=== PATIENT | female | born 1950 | race Caucasian/White ===

== ENCOUNTER 2022-07-03 19:58 | Inpatient (IN) | payer OTHER ==
[~2022-07-03] VITALS: Ht 157.5 cm; Wt 89.8 kg
[2022-07-03 20:42] VITALS: BP 129/45
[2022-07-03] MEDS ORDERED: MORPHINE SULFATE 4 MG/ML SYR IVP ONE (20:45)
[2022-07-03] MEDS ORDERED: ONDANSETRON 4 MG/2 ML VIAL IVP ONE (20:45)
[2022-07-03 21:34] LABS: BASOPHILS # (AUTO) 0.1 K/uL (0.00-0.22); BASOPHILS % (AUTO) 0.9 % (0.0-2.0); EOSINOPHILS # (AUTO) 0.1 K/uL (0-0.4); EOSINOPHILS % (AUTO) 0.7 % (0.0-4.0); HEMOGLOBIN 12.7 g/dL (12.0-16.0); LYMPHOCYTES # (AUTO) 2.5 K/uL (2.5-16.5); LYMPHOCYTES % (AUTO) 20.5 % (20.5-51.1); MEAN CORPUSCULAR HEMOGLOBIN 32 pg (27-31); MEAN CORPUSCULAR HGB CONC 34 g/dL (33-37); MEAN CORPUSCULAR VOLUME 96.4 fL (80-94); MONOCYTES # (AUTO) 0.8 K/uL (0.8-1.0); MONOCYTES % (AUTO) 6.4 % (1.7-9.3); NEUTROPHILS # (AUTO) 8.8 K/uL (1.8-7.7); NEUTROPHILS % (AUTO) 71.5 % (42.2-75.2); PLATELET COUNT (AUTO) 298 K/uL (140-450); RED BLOOD CELL COUNT(AUTO) 3.95 MIL/uL (4.20-5.40); WHITE BLOOD COUNT (AUTO) 12.4 K/uL (4.8-10.8)
[2022-07-03 21:57] LABS: PROTHROMBIN TIME 10.3 secs (10.8-13.4)
[2022-07-03 22:13] LABS: ANION GAP 14.6 (8-16); CARBON DIOXIDE 27.9 mmol/L (21-32); CREATININE 1.1 mg/dL (0.6-1.3); POTASSIUM 4.5 mmol/L (3.5-5.1); TOTAL BILIRUBIN 0.5 mg/dL (0.0-1.0)
[2022-07-03] MEDS ORDERED: INSULIN LISPRO SLIDING SCALE 100 UNITS/ML VIAL SUBQ PRN ×3 (23:10→23:40)
[2022-07-03] MEDS ORDERED: MORPHINE SULFATE 2 MG/ML SYR IVP PRN ×2 (23:10→23:40)
[2022-07-03] MEDS ORDERED: MORPHINE SULFATE 2 MG/ML SYR ONE (23:40)
[2022-07-04] MEDS ORDERED: MORPHINE SULFATE 4 MG/ML SYR IVP ONE (01:30)
[2022-07-04] MEDS ORDERED: HYDROcodone/APAP 10/325 MG 1 TAB TAB PO PRN (03:20)
[2022-07-04] MEDS ORDERED: METF-346 PO (04:39)
[2022-07-04] MEDS ORDERED: BUPR-160 PO (04:39)
[2022-07-04] MEDS ORDERED: LEUC10TA PO (04:39)
[2022-07-04] MEDS ORDERED: WELC PO (04:39)
[2022-07-04] MEDS ORDERED: [UNRECOGNIZED DRUG - CODE] IJ (04:39)
[2022-07-04] MEDS ORDERED: DULO60EC1 PO (04:43)
[2022-07-04] MEDS ORDERED: MELO-176 PO (04:43)
[2022-07-04] MEDS ORDERED: VIT1CAPS17 PO (04:56)
[2022-07-04] MEDS ORDERED: CALC625T27 PO (04:56)
[2022-07-04] MEDS ORDERED: GLUC1CAP66 PO (04:56)
[2022-07-04] MEDS ORDERED: MAGN100T13 PO (04:56)
[2022-07-04] MEDS ORDERED: [UNRECOGNIZED DRUG - CODE] PO (04:56)
[2022-07-04] MEDS ORDERED: FLOR250 PO (04:56)
[2022-07-04] MEDS ORDERED: CHOL1TAB11 PO (04:56)
[2022-07-04] MEDS ORDERED: [UNRECOGNIZED DRUG - CODE] (04:56)
[2022-07-04] MEDS ORDERED: ASCO500C20 PO (04:56)
[2022-07-04] MEDS ORDERED: ACETAMINOPHEN 325 MG TAB PO PRN (07:10)
[2022-07-04] MEDS ORDERED: ZOLPIDEM 10 MG TAB PO PRN (07:10)
[2022-07-04] MEDS: HYDROcodone/APAP 10/325 MG 1 TAB TAB PO SCH ×3 (07:10→20:21)
[2022-07-04] MEDS ORDERED: ONDANSETRON 4 MG/2 ML VIAL IVP PRN (07:10)
[2022-07-04] MEDS ORDERED: POTASSIUM CHLORIDE 10 MEQ TABER PO PRN (07:10)
[2022-07-04] MEDS ORDERED: LORazepam 2 MG/ML VIAL IVP PRN (07:10)
[2022-07-04] MEDS ORDERED: DOCUSATE SODIUM 100 MG GELCAP PO PRN (07:10)
[2022-07-04] MEDS: MORPHINE SULFATE 2 MG/ML SYR IVP PRN ×4 (07:28→23:30)
[2022-07-04] MEDS ORDERED: BLOOD GLUCOSE MONITORING 1 DEV DEV FS SCH ×2 (07:30)
[2022-07-04] MEDS: NACL 0.9% 1,000 ML IV SCH ×2 (07:41→21:28)
[2022-07-04] MEDS: BLOOD GLUCOSE MONITORING 1 DEV DEV FS SCH ×4 (07:41→20:05)
[2022-07-04] MEDS ORDERED: NON-FORMULARY ITEM (Bupropion HCl* (Wellbutrin Xl*) 1 TAB) PO SCH (09:00)
[2022-07-04] MEDS ORDERED: DULoxetine 30 MG CAPDR PO SCH (09:00)
[2022-07-04] MEDS ORDERED: HYDROcodone/APAP 10/325 MG 1 TAB TAB PO SCH (09:27)
[2022-07-04] MEDS: metFORMIN 500 MG TAB PO SCH ×2 (09:46→20:20)
[2022-07-04] MEDS: ENOXAPARIN 40 MG/0.4 ML SYR SUBQ SCH (09:55)
[2022-07-04] MEDS: buPROPion 150 MG TABER PO SCH (09:55)
[2022-07-04 16:00] VITALS: BP 153/97
[2022-07-04 20:00] VITALS: BP 143/61
[2022-07-04] MEDS: DULoxetine 30 MG CAPDR PO SCH (20:20)
[2022-07-04 21:28] LABS: APPEARANCE,URINE CLEAR (CLEAR); BILIRUBIN,URINE NEGATIVE (NEGATIVE); BLOOD, URINE NEGATIVE (NEGATIVE); COLOR,URINE YELLOW (YELLOW); LEUKOCYTE ESTERASE ,URINE TRACE (NEGATIVE); NITRITE, URINE POSITIVE (NEGATIVE); PH,URINE 5.5 (5.0-9.0); UGLUCOSE NEGATIVE (NEGATIVE)
[2022-07-04 22:16] LABS: RBC,URINE NONE SEEN /HPF (0-5); TRICHOMONAS,URINE None Seen /HPF (None Seen); WBC,URINE 0-5 /HPF (0-5); YEAST,URINE None Seen /HPF (None Seen)
[2022-07-04 22:17] LABS: CALCIUM OXALATE CRYSTALS,UR 0-10 /HPF (None Seen)
[2022-07-05] VITALS: BP 144/67
[2022-07-05 04:00] VITALS: BP 136/65
[2022-07-05] MEDS: HYDROcodone/APAP 10/325 MG 1 TAB TAB PO SCH ×3 (05:01→21:11)
[2022-07-05] MEDS: BLOOD GLUCOSE MONITORING 1 DEV DEV FS SCH ×4 (06:44→21:07)
[2022-07-05 07:28] LABS: BASOPHILS % (AUTO) 0.3 % (0.0-2.0); EOSINOPHILS % (AUTO) 0.4 % (0.0-4.0); HEMATOCRIT 33.7 % (36-48); HEMOGLOBIN 11.4 g/dL (12.0-16.0); LYMPHOCYTES # (AUTO) 1.7 K/uL (2.5-16.5); LYMPHOCYTES % (AUTO) 16.1 % (20.5-51.1); MEAN CORPUSCULAR HEMOGLOBIN 33 pg (27-31); MEAN CORPUSCULAR HGB CONC 34 g/dL (33-37); MEAN CORPUSCULAR VOLUME 98.1 fL (80-94); MONOCYTES # (AUTO) 0.8 K/uL (0.8-1.0); MONOCYTES % (AUTO) 7.1 % (1.7-9.3); NEUTROPHILS # (AUTO) 8.2 K/uL (1.8-7.7); NEUTROPHILS % (AUTO) 76.1 % (42.2-75.2); PLATELET COUNT (AUTO) 224 K/uL (140-450); RED BLOOD CELL COUNT(AUTO) 3.44 MIL/uL (4.20-5.40); RED CELL DISTRIBUTION WIDTH 13.2 % (11.6-13.7); WHITE BLOOD COUNT (AUTO) 10.7 K/uL (4.8-10.8)
[2022-07-05 07:38] LABS: ANION GAP 10.9 (8-16); CARBON DIOXIDE 30.3 mmol/L (21-32); CREATININE 0.8 mg/dL (0.6-1.3); POTASSIUM 4.2 mmol/L (3.5-5.1)
[2022-07-05 08:00] VITALS: BP 140/65
[2022-07-05] MEDS: DOCUSATE SODIUM 100 MG GELCAP PO SCH ×2 (09:25→21:10)
[2022-07-05] MEDS: metFORMIN 500 MG TAB PO SCH ×2 (09:39→17:09)
[2022-07-05] MEDS: buPROPion 150 MG TABER PO SCH (09:40)
[2022-07-05] MEDS: ENOXAPARIN 40 MG/0.4 ML SYR SUBQ SCH (09:43)
[2022-07-05] MEDS ORDERED: metFORMIN 500 MG TAB PO SCH (10:09)
[2022-07-05 12:00] VITALS: BP 140/65
[2022-07-05] MEDS: NACL 0.9% 1,000 ML IV SCH (12:07)
[2022-07-05 17:12] VITALS: BP 142/70
[2022-07-05] MEDS: MAG SULF 2000 MG/WATER PREMIX 50 ML IV PRN (17:23)
[2022-07-05 20:00] VITALS: BP 137/62
[2022-07-05] MEDS: DULoxetine 30 MG CAPDR PO SCH (21:10)
[2022-07-06] MEDS: MORPHINE SULFATE 2 MG/ML SYR IVP PRN ×2 (01:27→17:17)
[2022-07-06] MEDS: NACL 0.9% 1,000 ML IV SCH ×2 (02:04→17:00)
[2022-07-06 04:00] VITALS: BP 144/61
[2022-07-06] MEDS: HYDROcodone/APAP 10/325 MG 1 TAB TAB PO SCH ×3 (04:49→20:57)
[2022-07-06] MEDS: BLOOD GLUCOSE MONITORING 1 DEV DEV FS SCH ×4 (07:04→20:56)
[2022-07-06 07:14] LABS: BASOPHILS % (AUTO) 0.3 % (0.0-2.0); EOSINOPHILS # (AUTO) 0.1 K/uL (0-0.4); EOSINOPHILS % (AUTO) 0.9 % (0.0-4.0); HEMATOCRIT 30.9 % (36-48); HEMOGLOBIN 10.7 g/dL (12.0-16.0); LYMPHOCYTES # (AUTO) 1.7 K/uL (2.5-16.5); LYMPHOCYTES % (AUTO) 19.8 % (20.5-51.1); MEAN CORPUSCULAR HEMOGLOBIN 33 pg (27-31); MEAN CORPUSCULAR HGB CONC 35 g/dL (33-37); MEAN CORPUSCULAR VOLUME 96.6 fL (80-94); MONOCYTES # (AUTO) 0.7 K/uL (0.8-1.0); MONOCYTES % (AUTO) 7.7 % (1.7-9.3); NEUTROPHILS # (AUTO) 6.2 K/uL (1.8-7.7); NEUTROPHILS % (AUTO) 71.3 % (42.2-75.2); PLATELET COUNT (AUTO) 196 K/uL (140-450); WHITE BLOOD COUNT (AUTO) 8.7 K/uL (4.8-10.8)
[2022-07-06 07:19] LABS: ANION GAP 10.4 (8-16); CARBON DIOXIDE 28.4 mmol/L (21-32); CREATININE 0.6 mg/dL (0.6-1.3); POTASSIUM 3.8 mmol/L (3.5-5.1)
[2022-07-06 08:00] VITALS: BP 152/76
[2022-07-06] MEDS: metFORMIN 500 MG TAB PO SCH ×2 (08:25→17:00)
[2022-07-06] MEDS: buPROPion 150 MG TABER PO SCH (08:25)
[2022-07-06] MEDS: DOCUSATE SODIUM 100 MG GELCAP PO SCH ×2 (08:25→20:57)
[2022-07-06] MEDS: ENOXAPARIN 40 MG/0.4 ML SYR SUBQ SCH (08:26)
[2022-07-06] MEDS ORDERED: IBUP-2213 PO (11:30)
[2022-07-06] MEDS ORDERED: APIX2.5 PO (11:30)
[2022-07-06 17:35] VITALS: BP 130/76
[2022-07-06] MEDS: DULoxetine 30 MG CAPDR PO SCH (20:59)
[2022-07-07] MEDS: HYDROcodone/APAP 10/325 MG 1 TAB TAB PO SCH (05:53)
[2022-07-07] MEDS: NACL 0.9% 1,000 ML IV SCH ×2 (06:26→09:59)
[2022-07-07 06:54] LABS: BASOPHILS % (AUTO) 0.5 % (0.0-2.0); EOSINOPHILS # (AUTO) 0.1 K/uL (0-0.4); EOSINOPHILS % (AUTO) 1.1 % (0.0-4.0); HEMATOCRIT 30.7 % (36-48); HEMOGLOBIN 10.5 g/dL (12.0-16.0); LYMPHOCYTES # (AUTO) 1.3 K/uL (2.5-16.5); LYMPHOCYTES % (AUTO) 16.7 % (20.5-51.1); MEAN CORPUSCULAR HEMOGLOBIN 33 pg (27-31); MEAN CORPUSCULAR HGB CONC 34 g/dL (33-37); MONOCYTES # (AUTO) 0.6 K/uL (0.8-1.0); MONOCYTES % (AUTO) 7.7 % (1.7-9.3); NEUTROPHILS # (AUTO) 5.8 K/uL (1.8-7.7); PLATELET COUNT (AUTO) 210 K/uL (140-450); RED BLOOD CELL COUNT(AUTO) 3.17 MIL/uL (4.20-5.40); RED CELL DISTRIBUTION WIDTH 13.1 % (11.6-13.7); WHITE BLOOD COUNT (AUTO) 7.8 K/uL (4.8-10.8)
[2022-07-07 07:02] LABS: CARBON DIOXIDE 27.9 mmol/L (21-32); CREATININE 0.6 mg/dL (0.6-1.3); POTASSIUM 3.9 mmol/L (3.5-5.1)
[2022-07-07] MEDS: BLOOD GLUCOSE MONITORING 1 DEV DEV FS SCH ×3 (07:41→16:59)
[2022-07-07 08:00] VITALS: BP 130/52
[2022-07-07] MEDS: metFORMIN 500 MG TAB PO SCH (08:34)
[2022-07-07] MEDS: buPROPion 150 MG TABER PO SCH (08:55)
[2022-07-07] MEDS: DOCUSATE SODIUM 100 MG GELCAP PO SCH (08:55)
[2022-07-07] MEDS: ENOXAPARIN 40 MG/0.4 ML SYR SUBQ SCH (08:59)
[2022-07-07] MEDS ORDERED: lisinopriL 5 MG TAB PO SCH (09:00)
[2022-07-07] MEDS ORDERED: HYDROcodone/APAP 10/325 MG 1 TAB TAB PO PRN (11:25)
[2022-07-07] MEDS: MAG SULF 2000 MG/WATER PREMIX 50 ML IV PRN (12:26)
== END 2022-07-07 17:05 | DRG 563 ==
LOC: MED 19:58 → MTU 23:17 → MED 23:37 → MTU 07-04 06:03
PROVIDERS: ADMIT General Practice; ATTEND General Practice
PROC: 2W39X2Z Immobilization of Left Upper Extremity using Cast (ICD-10-PCS; principal; 2022-07-03)
DX: S42.355A Nondisplaced comminuted fracture of shaft of humerus, left arm, initial encounter for closed fracture (principal); F11.20 Opioid dependence, uncomplicated; M06.9 Rheumatoid arthritis, unspecified; E11.9 Type 2 diabetes mellitus without complications; M47.816 Spondylosis without myelopathy or radiculopathy, lumbar region; Z20.822 Contact with and (suspected) exposure to COVID-19; F32.A Depression, unspecified; X58.XXXA Exposure to other specified factors, initial encounter; Z90.710 Acquired absence of both cervix and uterus; Y93.89 Activity, other specified; Y92.89 Other specified places as the place of occurrence of the external cause; Y99.8 Other external cause status; Z88.8 Allergy status to other drugs, medicaments and biological substances; Z79.4 Long term (current) use of insulin
CPT/HCPCS: 36415; 73020; 73060; 80048; 80053; 81001; 82948; 83036; 83735; 85025; 85610; 85730; 87086; 96374; 96375; 96376; 97110; 97112; 97116; 97163-GP; 97530; 99285; J1650; J2270; J2405; J3475; Q0092